=== PATIENT | male | born 1955 | race Caucasian/White ===

== ENCOUNTER → 2023-06-14 10:47 | Outpatient (CLI) | payer MEDICARE, SELFPAY ==
[2023-06-14 12:51] LABS: C-Reactive Protein Quant 0.6 mg/dL (<1.0)
[2023-06-14 12:52] LABS: Erythrocyte Sedimentation Rate 6 MM/HR (0-15)
[2023-06-14 13:33] LABS: Vitamin B12 650 pg/mL (239-931)
[2023-06-18 01:17] LABS: Methylmalonic Acid,Serum 127 nmol/L (0-378)
== END ==
LOC: LAB 10:50
PROVIDERS: PCP Family Medicine; Referring Provider Internal Medicine; Visit Provider Internal Medicine
DX: G62.9 Polyneuropathy, unspecified (principal)
CPT/HCPCS: 36415; 82525; 82607; 83921; 85651; 86140

== ENCOUNTER → 2024-05-07 08:18 | Outpatient (CLI) | payer MEDICARE, SELFPAY ==
--- NOTE | 2024-05-07 | DI.US.S_ITS ---
PROCEDURE: US CAROTID DOPPLER BI INDICATIONS: CVD TECHNIQUE: Color and pulse Doppler interrogation was performed of both carotid systems, with image documentation and velocity measurements. COMPARISON: None. FINDINGS: Stenosis calculations are based on SRU ([employer] in [employer]) criteria. The flow velocities and the arterial waveforms are normal within both carotid arterial systems. Mild atherosclerotic plaque is seen on the left. The estimated degree of internal carotid artery stenosis is less than 50%. Antegrade flow is confirmed within both vertebral arteries. IMPRESSION: No hemodynamically significant stenosis is seen. Dictated by: Umang Hernandez M.D. on 05/07/2024 at 10:54 Approved by: Umang Hernandez M.D. on 05/07/2024 at 10:56
== END ==
LOC: US 08:20
PROVIDERS: PCP Family Medicine; Referring Provider Physician Assistant; Visit Provider Physician Assistant
DX: Z13.6 Encounter for screening for cardiovascular disorders (principal)
CPT/HCPCS: 93880

== ENCOUNTER → 2024-07-09 09:15 | Outpatient (CLI) | payer MEDICARE, SELFPAY ==
[2024-07-09 10:17] LABS: Add Manual Diff / Slide Review NO; Basophils Absolute Auto 0 /uL (0-100); Basophils Percent Auto 0.3 % (0-2); Eosinophils Absolute Auto 100 /uL (0-450); Hematocrit 43.1 % (41-53); Hemoglobin 14.6 g/dL (13.5-17.5); Lymphocytes Absolute Auto 2400 /uL (1100-4500); Lymphocytes Percent Auto 32.5 % (25-40); Mean Corpuscular HGB Conc 33.7 % (30-36); Mean Corpuscular Hemoglobin 30.7 PG (26-34); Monocytes Absolute Auto 600 /uL (0-900); Monocytes Percent Auto 7.8 % (3-14); Neutrophils Absolute Auto 4300 /uL (1500-7000); Neutrophils Percent Auto 58.4 % (50-75); Platelet Count 303 X10^3/uL (150-400); Red Blood Cell Count 4.74 X10^6/uL (4.5-5.9); Red Cell Distribution Width 13.3 % (11.6-14.8); White Blood Cell Count 7.4 X10^3/uL (4.5-11.0)
[2024-07-10 03:08] LABS: RPR Screen Non Reactive (Non Reactive)
[2024-07-10 15:09] LABS: Treponema pallidum Antibodies Non Reactive (Non Reactive)
[2024-07-11 18:08] LABS: Angiotensin Converting Enzyme 48 U/L (14-82)
[2024-07-13 11:13] LABS: Lysozyme (Muramidase) 4.4 ug/mL (3.6-8.1)
[2024-07-13 14:36] LABS: QuantiFERON Mitogen Value >10.00 IU/mL (.); QuantiFERON Nil Value 0.01 IU/mL (.); QuantiFERON TB Gold Plus Negative (Negative); QuantiFERON TB1 Ag Value 0.01 IU/mL (.); QuantiFERON TB2 Ag Value 0.01 IU/mL (.)
== END ==
LOC: LAB 09:16
PROVIDERS: PCP Family Medicine; Referring Provider Ophthalmology; Visit Provider Ophthalmology
DX: H35.82 Retinal ischemia (principal); H20.9 Unspecified iridocyclitis
CPT/HCPCS: 36415; 81374; 82164; 85025; 85549; 86480; 86592; 86780